=== PATIENT | male | born 1930 | race Caucasian/White ===

== ENCOUNTER 2017-01-08 08:21 | Emergency (ER) | payer MEDICARE, BC ==
[~2017-01-08] VITALS: Ht 170.2 cm; Wt 73.0 kg
[2017-01-08 08:25] VITALS: PULSE 71; RESP 16; TEMP 97.7; O2SAT 98
[2017-01-08] MEDS ORDERED: TRAM50TA PO (08:43)
[2017-01-08] MEDS ORDERED: PRED20 PO (08:43)
[2017-01-08] MEDS ORDERED: DIGO0.25 PO (08:48)
[2017-01-08] MEDS ORDERED: LOSA25TA PO (08:48)
[2017-01-08] MEDS ORDERED: PLAV75TA29 PO (08:48)
[2017-01-08] MEDS ORDERED: AMLO5TAB2 PO (08:48)
[2017-01-08] MEDS ORDERED: METO25TA3 PO (08:48)
[2017-01-08] MEDS ORDERED: AVOD0.5C PO (08:48)
[2017-01-08] MEDS ORDERED: ALLO100T PO (08:48)
--- NOTE | 2017-01-08 08:49 | PD ---
HPI Chief Complaint: Pain: Acute or Chronic Time Seen by Provider: 08:33 Travel History International Travel<30 days: No Contact w/Intl Traveler<30days: No Traveled to known affect area: No History of Present Illness HPI This patient complains of right knee pain. He believes it's a gout flare. He' s had gout many times and this feels exactly the same. No injury or fever. Pain is worse with movement and weightbearing. Severity is moderate. PFSH Past Medical History Hx Anticoagulant Therapy: Yes Cardiovascular Problems: Yes (HTN, CHOL) Diabetes: No Social History Alcohol Use: No Tobacco Use: No Substance Use: No Allergies-Medications (Allergen,Severity, Reaction): Coded Allergies: Aspirin (Verified Allergy, Severe, 01/08/17) Indocin (Verified Allergy, Severe, 01/08/17) Uncoded Allergies: SWORDFISH (Allergy, Severe, 01/08/17) Reported Meds & Prescriptions Reported Meds & Active Scripts Active Prednisone 20 Mg Tab 60 Mg PO DAILY Take 40 mg (2 tablets) daily for 5 days Tramadol (Tramadol HCl) 50 Mg Tab 50 Mg PO Q6H PRN Review of Systems General / Constitutional: No: Fever Eyes: No: Diploplia HENT: No: Headaches Cardiovascular: No: Chest Pain or Discomfort Physical Exam Narrative SKIN: Inspection shows no rash or ulcers. Palpation shows no induration or nodules. Psych: Normal mood and affect. Normal insight and judgment. Right knee: There is some minor erythema and warmth. No significant effusion. Has range of motion but some pain with flexion Data Data Last Documented VS Vital Signs Date Time Temp Pulse Resp B/P Pulse Ox O2 Delivery O2 Flow Rate FiO2 01/08/17 08:25 97.7 71 16 98 MDM Medical Decision Making Medical Screen Exam Complete: Yes Emergency Medical Condition: Yes Medical Record Reviewed: Yes Differential Diagnosis Gout, cellulitis, rheumatoid Narrative Course I have reviewed the patient's electronic medical record. Presentation is consistent with a gout flare Very low clinical suspicion of infectious cause. Gave him a course of tramadol and prednisone. He says he cannot take anti- inflammatories Return if he worsens or develops fever Follow-up with primary care Diagnosis Primary Impression: Gout of right knee Qualified Code: M10.9 - Acute gout of right knee, unspecified cause Additional Instructions: The patient was advised to follow up with their physician and return if they worsen. Return if you get a fever Med/Other Pt SpecificInfo: Prescription(s) given Scripts Prednisone 20 Mg Tab60 Mg PO DAILY #15 TAB Ref 0 Take 40 mg (2 tablets) daily for 5 days Prov:Rito Rodriguez MD 01/08/17 Tramadol 50 Mg Tab50 Mg PO Q6H PRN (PAIN) #20 TAB Ref 0 Prov:Rito Rodriguez MD 01/08/17 Disposition: 01 DISCHARGE HOME Condition: Stable Rito Rodriguez MD Jan 08, 2017 08:49
== END 2017-01-08 08:55 | disposition home or self-care (01) ==
LOC: PHED 08:21
DX: M10.061 Idiopathic gout, right knee (principal); I10 Essential (primary) hypertension
CPT/HCPCS: 99283